=== PATIENT | male | born 1990 | race Hispanic/Latino ===

== ENCOUNTER → 2022-03-28 19:34 | Outpatient (CLI) | payer OTHER, SELFPAY ==
--- NOTE | 2022-03-28 | DI.MRI.S_ITS ---
PROCEDURE: MR KNEE RT WO CON INDICATIONS: RIGHT KNEE PAIN TECHNIQUE: Noncontrast sagittal PD fast spin echo and T2 fast spin echo with fat saturation, sagittal 3-D FLASH with fat saturation; coronal T1 spin echo and PD fast spin echo with fat saturation, and axial PD fast spin echo with fat saturation through the knee. COMPARISON: None. FINDINGS: Image quality: Excellent. Menisci: This rim tear of the peripheral aspect of the posterior horn of the medial meniscus. The lateral meniscus demonstrates normal morphology and internal signal. The meniscal root ligaments appear intact. Cruciate ligaments: There is anterior cruciate ligament tear with edema, which may be partial The posterior cruciate ligament is intact. Medial structures: The medial collateral ligament appears intact. There is mild sprain of the semimembranosus tendon insertions. The meniscocapsular junction appears intact. Visualized portions of the pes anserinus tendons appear normal. No abnormal bursal fluid. Lateral structures: The lateral collateral ligament and the biceps femoris tendon appear intact. The popliteus tendon appears normal. Iliotibial band appears normal. Anterior structures: The quadriceps and patellar tendons appear intact. Patellar alignment is normal. No femoral trochlear dysplasia or ventral trochlear prominence. No edema in the infrapatellar fat pad. Bones and cartilage: No fractures. There is bone edema in the posterior aspect of the medial tibial plateau. The cartilage appears normal in thickness. There is early cartilage thickness degeneration. Joint space: There is small knee joint effusion. No Porter's cyst. Normal appearing synovial plicae are incidentally noted. IMPRESSION: 1. ACL tear which may be partial. 2. Ramp tear of the posterior horn of the medial meniscus. 3. Sprain of the semimembranous insertions. 4. Bone marrow edema in the posterior aspect of the medial tibial plateau consistent with trabecular injury/bone contusions. 5. Small knee joint effusion. Dictated by: Noemi Saavedra M.D. on 03/29/2022 at 8:57 Approved by: Noemi Saavedra M.D. on 03/29/2022 at 10:13
== END ==
PROVIDERS: Referring Provider Nurse Practitioner Family; Visit Provider Nurse Practitioner Family
DX: M25.569 Pain in unspecified knee (principal); S83.511A Sprain of anterior cruciate ligament of right knee, initial encounter; S83.203A Other tear of unspecified meniscus, current injury, right knee, initial encounter; S83.8X1A Sprain of other specified parts of right knee, initial encounter; M25.461 Effusion, right knee
CPT/HCPCS: 73721